=== PATIENT | male | born 1940 | race Hispanic/Latino ===

== ENCOUNTER 2018-04-04 09:56 | Emergency (ER) | payer MEDICARE ==
[~2018-04-04 09:56] MED LIST: AEC81 PO; AMLO5TAB7 PO; ATOR10 PO; CLOP75TA14 PO; FLUTICASONE SPRAY EN; GEMF600T4 PO; METF-444 PO; METO-391 PO; NITR0.4T SL; POLY17PO4 PO
[2018-04-04 10:50] LABS: BASOPHILS % (AUTO) 0.3 % (0.0-5.0); EOSINOPHILS % (AUTO) 0.9 % (0.0-8.0); HEMATOCRIT 41.8 % (42-54); LYMPHOCYTES % (AUTO) 20.4 % (21.0-51.0); MEAN CORPUSCULAR HEMOGLOBIN 33.2 pg (27.0-33.0); MEAN CORPUSCULAR HGB CONC 34.6 g/dL (32.0-36.0); MONOCYTES % (AUTO) 7.6 % (3.0-13.0); NEUTROPHILS % (AUTO) 70.8 % (40.0-77.0); PLATELET COUNT (AUTO) 194 K/uL (130-400); RED BLOOD CELL COUNT(AUTO) 4.35 MIL/uL (4.50-6.20); RED CELL DISTRIBUTION WIDTH 13.7 % (11.0-15.5); WHITE BLOOD COUNT (AUTO) 8.9 K/uL (4.8-10.8)
[2018-04-04 10:59] LABS: CREATININE 1.3 mg/dL (0.5-1.5); POTASSIUM 4.4 mmol/L (3.5-5.1)
[2018-04-04 11:05] LABS: ALBUMIN 4.2 g/dL (3.5-5.0); BILIRUBIN,TOTAL 0.8 mg/dL (0.2-1.0); TOTAL PROTEIN, SERUM 7.8 g/dL (6.0-8.3)
== END 2018-04-04 12:36 | disposition home or self-care (01) ==
LOC: EDH 09:56
DX: M19.90 Unspecified osteoarthritis, unspecified site (principal); I25.10 Atherosclerotic heart disease of native coronary artery without angina pectoris; E11.9 Type 2 diabetes mellitus without complications; K21.9 Gastro-esophageal reflux disease without esophagitis; I10 Essential (primary) hypertension; Z98.890 Other specified postprocedural states; Z87.891 Personal history of nicotine dependence
CPT/HCPCS: 36415; 80053; 85025

== ENCOUNTER → 2018-10-18 | Outpatient (CLI) | payer MEDICARE ==
[~2018-10-18] MED LIST changes: -AMLO5TAB7 PO; +AMLO5TAB9 PO; -GEMF600T4 PO; +GEMF600T5 PO
== END | disposition home or self-care (01) ==
LOC: SHCH 11:17
PROVIDERS: ATTEND Internal Medicine Cardiovascular Disease
DX: I08.0 Rheumatic disorders of both mitral and aortic valves (principal); I11.9 Hypertensive heart disease without heart failure
CPT/HCPCS: 93306

== ENCOUNTER → 2018-11-08 | Outpatient (CLI) | payer MEDICARE ==
[~2018-11-08] MED LIST changes: +REGADENOSON 0.4 MG/5 ML PF SYG IVP SCH
== END | disposition home or self-care (01) ==
LOC: SHCH 08:08
PROVIDERS: ATTEND Internal Medicine Cardiovascular Disease
DX: R06.00 Dyspnea, unspecified (principal)
CPT/HCPCS: 78452; 93017; 96374; A9500 ×2; J2785

== ENCOUNTER 2019-07-28 23:29 | Observation (INO) | payer MEDICARE ==
[~2019-07-28] VITALS: Ht 170.2 cm; Wt 79.4 kg
[~2019-07-28 23:29] MED LIST changes: -REGADENOSON 0.4 MG/5 ML PF SYG IVP SCH
[2019-07-28] MEDS ORDERED: ASPIRIN 325 MG TABLET ONE (23:34)
[2019-07-28 23:48] LABS: BASOPHILS % (AUTO) 0.3 % (0.0-5.0); EOSINOPHILS % (AUTO) 2.3 % (0.0-8.0); HEMATOCRIT 40.2 % (42-54); LYMPHOCYTES % (AUTO) 39.9 % (21.0-51.0); MEAN CORPUSCULAR HEMOGLOBIN 32.5 pg (27.0-33.0); MEAN CORPUSCULAR HGB CONC 33.8 g/dL (32.0-36.0); MEAN CORPUSCULAR VOLUME 95.9 fL (79-99); MONOCYTES % (AUTO) 8.8 % (3.0-13.0); NEUTROPHILS % (AUTO) 48.6 % (40.0-77.0); PLATELET COUNT (AUTO) 185 K/uL (130-400); RED BLOOD CELL COUNT(AUTO) 4.19 MIL/uL (4.50-6.20); RED CELL DISTRIBUTION WIDTH 12.8 % (11.0-15.5); WHITE BLOOD COUNT (AUTO) 8.8 K/uL (4.8-10.8)
[2019-07-28 23:57] LABS: CREATININE 1.5 mg/dL (0.5-1.5)
[2019-07-29 00:01] LABS: INR 1.03 (0.85-1.15); PARTIAL THROMBOPLASTIN TIME 24.5 SEC (26.3-35.5); PROTHROMBIN TIME 10.8 SEC (9.6-11.6)
[2019-07-29 00:02] LABS: ALBUMIN 4.3 g/dL (3.5-5.0); BILIRUBIN,TOTAL 0.7 mg/dL (0.2-1.0); TOTAL PROTEIN, SERUM 7.8 g/dL (6.0-8.3)
[2019-07-29] MEDS ORDERED: LIDOCAINE HCL 2% VISCOUS 15 ML UDCUP ONE (00:13)
[2019-07-29] MEDS ORDERED: MAG HYDROX/AL HYDROX/SIMETH ES 30 ML SUSP UDCUP ONE (00:14)
[2019-07-29] MEDS ORDERED: NITROGLYCERIN 1GM/1 INCH PACKET TD ONE (01:14)
[2019-07-29] MEDS ORDERED: ACETAMINOPHEN 325 MG TAB PO PRN ×2 (02:45)
[2019-07-29] MEDS ORDERED: ONDANSETRON HCL 4 MG/2 ML VIAL IV PRN (02:45)
[2019-07-29] MEDS ORDERED: DEXTROSE 50%-WATER 50 ML DISP.SYRIN IV PRN (02:45)
[2019-07-29] MEDS ORDERED: NITROGLYCERIN 0.4 MG SL TAB SL PRN (02:45)
[2019-07-29] MEDS ORDERED: GLUCAGON 1MG KIT 1 MG ML IM PRN (02:45)
[2019-07-29 02:58] LABS: HEMOGLOBIN A1C 6.5 % (4.0-6.0)
[2019-07-29 05:18] LABS: HEMATOCRIT 37.1 % (42-54); MEAN CORPUSCULAR HEMOGLOBIN 32.5 pg (27.0-33.0); MEAN CORPUSCULAR VOLUME 95.6 fL (79-99); PLATELET COUNT (AUTO) 172 K/uL (130-400); RED BLOOD CELL COUNT(AUTO) 3.88 MIL/uL (4.50-6.20); RED CELL DISTRIBUTION WIDTH 12.8 % (11.0-15.5); WHITE BLOOD COUNT (AUTO) 7.4 K/uL (4.8-10.8)
[2019-07-29 05:36] LABS: ALBUMIN 3.6 g/dL (3.5-5.0); BILIRUBIN,TOTAL 0.7 mg/dL (0.2-1.0); CREATININE 1.2 mg/dL (0.5-1.5); MAGNESIUM 2.1 mg/dL (1.80-2.40); POTASSIUM 4.7 mmol/L (3.5-5.1)
[2019-07-29 06:21] LABS: BAND NEUTROPHILS % (MANUAL) 1 % (0-2); EOSINOPHILS % (MANUAL) 1 % (1-6); LYMPHOCYTES % (MANUAL) 33 % (22-44); MAN.DIFF COMMENT-IMPRESSION MANUAL DIFFERENTIAL; MONOCYTES % (MANUAL) 8 % (2-9); PLATELET MORPHOLOGY COMMENT A1; REACTIVE LYMPHOCYTES 2 % (0-0); SEGMENTED NEUTROPHILS % 55 % (40-70)
[2019-07-29] MEDS ORDERED: INSULIN HUMULIN R 100 UNIT/ML 3ML SQ SCH (07:30)
[2019-07-29] MEDS ORDERED: METOPROLOL TARTRATE 25 MG TAB ONE (08:38)
[2019-07-29] MEDS ORDERED: ENOXAPARIN SODIUM 30 MG/0.3 ML SQ ONE (08:38)
[2019-07-29] MEDS ORDERED: ASPIRIN 81MG TAB.CHEW ONE (08:38)
--- NOTE | 2019-07-29 17:36 | NUR ---
INITIAL: Met with pt and spouse this afternoon to discuss dcp. Pt mentions that he lives w his spouse. Prior to admission he was using a cane for ambulation and was independent w ADLs. pt states that he also has a cpap @ home. Per pt he was still able to drive where needed. Pt mentions that he feels safe and comfortable to return home at [place]. CM to continue to follow and wait for Md recommendations. Addendum: 07/29/19 at 1737 by MIGUEL INIGUEZ Amended: Links added.
[2019-07-29 19:30] VITALS: BP 145/78
[2019-07-29] MEDS ORDERED: RANO500T2 PO (21:01)
[2019-07-29] MEDS ORDERED: RANI-662 PO (21:02)
[2019-07-29] MEDS ORDERED: METO-408 PO (21:04)
[2019-07-29 23:32] VITALS: BP 129/71
[2019-07-30 03:49] VITALS: BP 121/67
[2019-07-30 05:37] LABS: BASOPHILS % (AUTO) 0.5 % (0.0-5.0); EOSINOPHILS % (AUTO) 3.1 % (0.0-8.0); HEMATOCRIT 38.4 % (42-54); LYMPHOCYTES % (AUTO) 33.4 % (21.0-51.0); MEAN CORPUSCULAR HEMOGLOBIN 32.5 pg (27.0-33.0); MEAN CORPUSCULAR HGB CONC 33.9 g/dL (32.0-36.0); MONOCYTES % (AUTO) 10.2 % (3.0-13.0); NEUTROPHILS % (AUTO) 52.6 % (40.0-77.0); PLATELET COUNT (AUTO) 178 K/uL (130-400); RED CELL DISTRIBUTION WIDTH 12.6 % (11.0-15.5); WHITE BLOOD COUNT (AUTO) 6.4 K/uL (4.8-10.8)
[2019-07-30 08:00] VITALS: BP 128/77
[2019-07-30] MEDS: FAMOTIDINE 20MG TAB 20 MG TAB PO SCH ×2 (09:00→09:58)
[2019-07-30] MEDS: METOPROLOL TARTRATE 25 MG TAB PO SCH ×2 (09:00→09:58)
[2019-07-30] MEDS: ASPIRIN 81MG TAB.CHEW PO SCH ×2 (09:00→09:58)
[2019-07-30] MEDS: ENOXAPARIN SODIUM 30 MG/0.3 ML SQ SCH ×2 (09:00→09:59)
[2019-07-30 12:00] VITALS: BP 132/62
== END 2019-07-30 14:20 | disposition home or self-care (01) ==
LOC: EDH 23:29 → EDHIP 07-29 01:45 → 4DH 07-29 19:34
PROVIDERS: ADMIT Internal Medicine; ATTEND Internal Medicine
DX: I49.1 Atrial premature depolarization (principal); R07.89 Other chest pain; I13.10 Hypertensive heart and chronic kidney disease without heart failure, with stage 1 through stage 4 chronic kidney disease, or unspecified chronic kidney disease; E11.22 Type 2 diabetes mellitus with diabetic chronic kidney disease; N18.3 Chronic kidney disease, stage 3 (moderate); I25.10 Atherosclerotic heart disease of native coronary artery without angina pectoris; K21.9 Gastro-esophageal reflux disease without esophagitis; M10.9 Gout, unspecified; G47.33 Obstructive sleep apnea (adult) (pediatric); Z87.891 Personal history of nicotine dependence; Z98.41 Cataract extraction status, right eye; Z98.42 Cataract extraction status, left eye; Z95.1 Presence of aortocoronary bypass graft; Z98.61 Coronary angioplasty status; Z79.82 Long term (current) use of aspirin; Z79.01 Long term (current) use of anticoagulants; Z79.899 Other long term (current) drug therapy
CPT/HCPCS: 36415 ×3; 71045; 80053 ×2; 80061; 82550; 82948 ×4; 83036; 83690; 83735; 83880; 84443; 84484 ×3; 85025 ×3; 85610; 85730; 93005 ×2; 96372; 99284; G0378 ×37; J1650 ×2

== ENCOUNTER 2019-08-22 05:46 | Day surgery (SDC) | payer MEDICARE ==
[2019-08-17 08:49] LABS: BASOPHILS % (AUTO) 0.3 % (0.0-5.0); EOSINOPHILS % (AUTO) 2.5 % (0.0-8.0); LYMPHOCYTES % (AUTO) 33.4 % (21.0-51.0); MEAN CORPUSCULAR HEMOGLOBIN 32.2 pg (27.0-33.0); MEAN CORPUSCULAR VOLUME 97.6 fL (79-99); MONOCYTES % (AUTO) 7.8 % (3.0-13.0); NEUTROPHILS % (AUTO) 55.7 % (40.0-77.0); PLATELET COUNT (AUTO) 196 K/uL (130-400); RED CELL DISTRIBUTION WIDTH 12.8 % (11.0-15.5); WHITE BLOOD COUNT (AUTO) 6.4 K/uL (4.8-10.8)
[2019-08-17 08:52] LABS: APPEARANCE,URINE CLEAR (CLEAR); BILIRUBIN,URINE NEGATIVE (NEGATIVE); COLOR,URINE YELLOW (YELLOW); GLUCOSE, URINE (UA) NEGATIVE (NEGATIVE); KETONES,URINE NEGATIVE (NEGATIVE); LEUKOCYTE ESTERASE ,URINE NEGATIVE (NEGATIVE); NITRATE,URINE NEGATIVE (NEGATIVE); OCCULT BLOOD,URINE NEGATIVE (NEGATIVE); PH,URINE 5.5 (5.0-8.0); PROTEIN,URINE NEGATIVE (NEGATIVE); UROBILINOGEN,URINE 0.2 mg/dL (0.2-1.0)
[2019-08-17 08:56] LABS: CREATININE 1.3 mg/dL (0.5-1.5); POTASSIUM 4.6 mmol/L (3.5-5.1)
[2019-08-17 08:59] VITALS: BP 155/66
[2019-08-17 09:00] LABS: INR 1.02 (0.85-1.15); PROTHROMBIN TIME 10.7 SEC (9.6-11.6)
--- NOTE | 2019-08-21 14:56 | NUR ---
labs crea 1.[address], no further orders given, ok to proceed with planned procedure
[~2019-08-22] VITALS: Ht 170.2 cm; Wt 81.2 kg
[2019-08-22] VITALS (12 sets, daily range): BP systolic 109–144; BP diastolic 58–69
[~2019-08-22 05:46] MED LIST changes: +ACETAMINOPHEN 325 MG TAB PO PRN; -AEC81 PO; +ASPI-1012 PO; +FAMO20TA8 PO; -METO-391 PO; +METO-408 PO; -POLY17PO4 PO; +RANO500T3 PO; +SODIUM CHLORIDE 0.9% 500ML 500 ML IV SCH
[2019-08-22] MEDS ORDERED: SODIUM CHLORIDE 0.9% 1000ML 1,000 ML IV ONE (06:23)
[2019-08-22] MEDS ORDERED: HEPARIN SODIUM 1000UNIT/ML 10ML VIAL ONE (07:18)
[2019-08-22] MEDS ORDERED: SODIUM BICARB 50MEQ 50ML VIAL ONE (07:18)
[2019-08-22] MEDS ORDERED: NITROGLYCERIN 1 MG/VIAL VIAL IV ONE (07:19)
[2019-08-22] MEDS ORDERED: LIDOCAINE HCL 2% 20ML ONE (07:19)
[2019-08-22] MEDS ORDERED: IOHEXOL-350 50ML VIAL IV ONE (07:22)
[2019-08-22] MEDS ORDERED: IOHEXOL 350 MG/ML 100ML INFUS..BTL IV ONE (07:22)
[2019-08-22] MEDS ORDERED: MIDAZOLAM HCL 1 MG/ML 2ML VIAL ONE ×2 (07:36→07:46)
[2019-08-22] MEDS ORDERED: MEPERIDINE-PF 25 MG/ML SYG ONE ×2 (07:36→07:46)
[2019-08-22] MEDS ORDERED: SODIUM CHLORIDE 0.9% 1000ML 1,000 ML IV SCH (08:28)
[2019-08-22] MEDS ORDERED: DEXTROSE 50%-WATER 50 ML DISP.SYRIN IV PRN (08:30)
[2019-08-22] MEDS ORDERED: GLUCAGON 1MG KIT 1 MG ML IM PRN (08:30)
[2019-08-22] MEDS ORDERED: INSULIN HUMULIN R 100 UNIT/ML 3ML SQ SCH (11:30)
--- NOTE | 2019-08-22 14:00 | NUR ---
PT discharged home, tolerating liquids/solids well, voided, ambulating well. Pt denies any severe pain, nausea or dizziness. Dressing to right groin remains dry, clean and intact, area soft and non-tender. Pt and spouse instructed in routine and emergency care of cath site. Pt and spouse verbalized understanding. Pt and family report no further questions at this time.
--- NOTE | 2019-08-22 14:00 | NUR ---
dc pt dc home via wc,no distress noted. pt denied any pain or discomforts. pt accompanied by spouse.
== END 2019-08-22 14:00 | disposition home or self-care (01) ==
LOC: DAH 05:46
PROVIDERS: ATTEND Internal Medicine Cardiovascular Disease
DX: I25.119 Atherosclerotic heart disease of native coronary artery with unspecified angina pectoris (principal); I35.0 Nonrheumatic aortic (valve) stenosis; G47.33 Obstructive sleep apnea (adult) (pediatric); I10 Essential (primary) hypertension; E11.9 Type 2 diabetes mellitus without complications; Z95.1 Presence of aortocoronary bypass graft; Z79.01 Long term (current) use of anticoagulants
CPT/HCPCS: 36415; 71045; 80048; 81003; 82948 ×2; 85025; 85610; 85730; 93005; 93459; A4215; A4216; A4221; A4222; A4223 ×3; A4606; A4663; A6260; C1760; C1769 ×2; C1894; J1644; J2175 ×2; J2250 ×2; J3490 ×3; J7030; Q9965 ×2; Q9967 ×2; 99156; 99157

== ENCOUNTER → 2020-08-22 | Outpatient (CLI) | payer MEDICARE ==
[~2020-08-22] MED LIST changes: -ACETAMINOPHEN 325 MG TAB PO PRN; +AMLO-257 PO; -AMLO5TAB9 PO; -GEMF600T5 PO; +GEMF600T89 PO; -SODIUM CHLORIDE 0.9% 500ML 500 ML IV SCH
== END | disposition home or self-care (01) ==
LOC: SHCH 15:41
PROVIDERS: ATTEND Internal Medicine Cardiovascular Disease
DX: I10 Essential (primary) hypertension (principal)
CPT/HCPCS: 93306; 93356

== ENCOUNTER → 2020-09-03 | Outpatient (CLI) | payer MEDICARE | END | disposition home or self-care (01) | LOC: SHCH 10:00 | PROVIDERS: ATTEND Internal Medicine Cardiovascular Disease | DX: I15.0 Renovascular hypertension (principal) | CPT/HCPCS: 93975 ==

== ENCOUNTER → 2020-09-16 | Outpatient (CLI) | payer MEDICARE | END | disposition home or self-care (01) | LOC: SHCH 15:00 | PROVIDERS: ATTEND Internal Medicine Cardiovascular Disease | DX: I25.810 Atherosclerosis of coronary artery bypass graft(s) without angina pectoris (principal); I35.0 Nonrheumatic aortic (valve) stenosis | CPT/HCPCS: 93880 ==

== ENCOUNTER 2021-06-16 06:24 | Day surgery (SDC) | payer MEDICARE ==
[2021-06-11 10:33] LABS: BASOPHILS % (AUTO) 0.2 % (0.0-5.0); EOSINOPHILS % (AUTO) 1.6 % (0.0-8.0); HEMATOCRIT 38.2 % (42-54); LYMPHOCYTES % (AUTO) 34.3 % (21.0-51.0); MEAN CORPUSCULAR HEMOGLOBIN 33.6 pg (27.0-33.0); MEAN CORPUSCULAR HGB CONC 33.5 g/dL (32.0-36.0); MEAN CORPUSCULAR VOLUME 100.3 fL (79-99); MONOCYTES % (AUTO) 7.2 % (3.0-13.0); NEUTROPHILS % (AUTO) 56.5 % (40.0-77.0); PLATELET COUNT (AUTO) 174 K/uL (130-400); RED BLOOD CELL COUNT(AUTO) 3.81 MIL/uL (4.50-6.20); RED CELL DISTRIBUTION WIDTH 12.9 % (11.0-15.5); WHITE BLOOD COUNT (AUTO) 6.3 K/uL (4.8-10.8)
[2021-06-11 10:40] LABS: APPEARANCE,URINE Clear (CLEAR); BILIRUBIN,URINE Negative (NEGATIVE); COLOR,URINE Yellow (YELLOW); GLUCOSE, URINE (UA) Negative (NEGATIVE); KETONES,URINE Negative (NEGATIVE); LEUKOCYTE ESTERASE ,URINE Trace (NEGATIVE); NITRATE,URINE Negative (NEGATIVE); OCCULT BLOOD,URINE Negative (NEGATIVE); PROTEIN,URINE Negative (NEGATIVE); UROBILINOGEN,URINE 0.2 mg/dL (0.2-1.0)
[2021-06-11 10:43] LABS: CREATININE 1.4 mg/dL (0.5-1.5); POTASSIUM 5.2 mmol/L (3.5-5.1)
[2021-06-11 10:45] LABS: INR 1.01 (0.85-1.15)
[2021-06-11 10:46] LABS: BACTERIA,URINE Rare /HPF (None Seen); RBC,URINE 0-1 /HPF (0-1); SQUAMOUS EPITHELIAL CELL,UR Rare /HPF (0-2); WBC,URINE 0-1 /HPF (0-1)
[2021-06-11 10:47] LABS: PARTIAL THROMBOPLASTIN TIME 24.6 SEC (26.3-35.5)
[2021-06-11 11:50] VITALS: BP 154/74
[~2021-06-16] VITALS: Ht 167.6 cm; Wt 74.8 kg
[2021-06-16] VITALS (12 sets, daily range): BP systolic 116–155; BP diastolic 54–75
[~2021-06-16 06:24] MED LIST changes: -AMLO-257 PO; -CLOP75TA14 PO; -FAMO20TA8 PO; -FLUTICASONE SPRAY EN; +GABA300C PO; +IPRA3S NASAL; +LOSA25TA41 PO; -NITR0.4T SL; +PLEC3TAB2 PO; +VITA1CAP85 PO
[2021-06-16] MEDS ORDERED: 0.9%NACL 1000ML 1,000 ML IV ONE (08:26)
[2021-06-16] MEDS ORDERED: NITROGLYCERIN 2 MG VIAL IV ONE (08:42)
[2021-06-16] MEDS ORDERED: HEPARIN 10,000 UNIT/10ML (1,000 UNIT/ML) VIAL ONE (08:42)
[2021-06-16] MEDS ORDERED: SODIUM BICARB 50MEQ 50ML VIAL 50 ML ONE (08:42)
[2021-06-16] MEDS ORDERED: IOHEXOL 350 MG/ML 100ML INFUS..BTL IV ONE (08:43)
[2021-06-16] MEDS ORDERED: IOHEXOL-350 50ML VIAL IV ONE (08:43)
[2021-06-16] MEDS ORDERED: LIDOCAINE HCL 400MG/20ML VIAL ONE (08:43)
[2021-06-16] MEDS ORDERED: MIDAZOLAM HCL 1 MG/ML 2ML VIAL ONE (09:17)
[2021-06-16] MEDS ORDERED: MEPERIDINE-PF 25 MG/ML SYG ONE (09:17)
[2021-06-16] MEDS ORDERED: DEXTROSE 50%-WATER 50 ML DISP.SYRIN IV PRN (11:00)
[2021-06-16] MEDS ORDERED: 0.9%NACL 1000ML 1,000 ML IV SCH (11:00)
[2021-06-16] MEDS ORDERED: INSULIN HUMULIN R 100 UNIT/ML 3ML SQ SCH (11:30)
== END 2021-06-16 17:15 | disposition home or self-care (01) ==
LOC: DAH 06:24
PROVIDERS: ATTEND Internal Medicine Cardiovascular Disease
DX: I25.119 Atherosclerotic heart disease of native coronary artery with unspecified angina pectoris (principal); I35.0 Nonrheumatic aortic (valve) stenosis; I49.8 Other specified cardiac arrhythmias; E11.22 Type 2 diabetes mellitus with diabetic chronic kidney disease; I13.0 Hypertensive heart and chronic kidney disease with heart failure and stage 1 through stage 4 chronic kidney disease, or unspecified chronic kidney disease; N18.30 Chronic kidney disease, stage 3 unspecified; I50.32 Chronic diastolic (congestive) heart failure; G47.33 Obstructive sleep apnea (adult) (pediatric); M10.9 Gout, unspecified; Z79.01 Long term (current) use of anticoagulants; Z79.899 Other long term (current) drug therapy; Z79.82 Long term (current) use of aspirin; Z79.84 Long term (current) use of oral hypoglycemic drugs; Z82.49 Family history of ischemic heart disease and other diseases of the circulatory system
CPT/HCPCS: 36415; 71045; 80048; 81001; 82948 ×2; 85025; 85610; 85730; 93005; 93461; A4215; A4216; A4221; A4222; A4223 ×3; A4606; A4663; C1760; C1769 ×3; C1893 ×2; C1894 ×3; J1644; J2175; J2250; J3490 ×3; J7030; Q9965; Q9967 ×2; 99156; 99157

== ENCOUNTER 2021-06-17 09:36 | Emergency (ER) | payer MEDICARE ==
[~2021-06-17] VITALS: Ht 167.6 cm; Wt 74.8 kg
[2021-06-17 11:18] VITALS: BP 142/70
== END 2021-06-17 11:35 | disposition home or self-care (01) ==
LOC: EDH 09:36
DX: G89.18 Other acute postprocedural pain (principal); M79.605 Pain in left leg; E11.9 Type 2 diabetes mellitus without complications; I11.9 Hypertensive heart disease without heart failure; K21.9 Gastro-esophageal reflux disease without esophagitis; Z79.82 Long term (current) use of aspirin; G47.30 Sleep apnea, unspecified; Z79.84 Long term (current) use of oral hypoglycemic drugs; Z79.899 Other long term (current) drug therapy; Z95.5 Presence of coronary angioplasty implant and graft
CPT/HCPCS: 76882

== ENCOUNTER → 2021-06-26 | Outpatient (CLI) | payer MEDICARE ==
[~2021-06-26] MED LIST changes: +IOHEXOL 350 MG/ML 100ML INFUS..BTL IV ONE; +METOPROLOL TARTRATE 1 MG/ML 5ML VIAL IV ONE
== END | disposition home or self-care (01) ==
LOC: RAH 08:04
PROVIDERS: ATTEND Internal Medicine Cardiovascular Disease
DX: I25.10 Atherosclerotic heart disease of native coronary artery without angina pectoris (principal); I51.7 Cardiomegaly; J84.10 Pulmonary fibrosis, unspecified; J47.9 Bronchiectasis, uncomplicated; M47.815 Spondylosis without myelopathy or radiculopathy, thoracolumbar region
CPT/HCPCS: 74174; 75574; J3490; Q9967

== ENCOUNTER 2021-07-23 00:07 | Emergency (ER) | payer MEDICARE ==
[~2021-07-23] VITALS: Ht 167.6 cm; Wt 74.8 kg
[~2021-07-23 00:07] MED LIST changes: -IOHEXOL 350 MG/ML 100ML INFUS..BTL IV ONE; -METOPROLOL TARTRATE 1 MG/ML 5ML VIAL IV ONE
[2021-07-23] MEDS ORDERED: MAG/ALUM/SIMETH 30 ML UDCUP PO ONE (03:30)
[2021-07-23] MEDS ORDERED: LIDOCAINE HCL 2% VISCOUS 15 ML UDCUP PO ONE (03:30)
[2021-07-23] MEDS ORDERED: NITROGLYCERIN 1GM OINT 1 INCH/1GM TD ONE (04:00)
[2021-07-23] MEDS ORDERED: METOPROLOL TARTRATE 25 MG TAB PO ONE (04:00)
[2021-07-23 04:05] LABS: BASOPHILS % (AUTO) 0.3 % (0.0-5.0); EOSINOPHILS % (AUTO) 1.3 % (0.0-8.0); HEMATOCRIT 33.5 % (42-54); MEAN CORPUSCULAR HEMOGLOBIN 33.3 pg (27.0-33.0); MEAN CORPUSCULAR HGB CONC 33.4 g/dL (32.0-36.0); MEAN CORPUSCULAR VOLUME 99.7 fL (79-99); MONOCYTES % (AUTO) 8.1 % (3.0-13.0); PLATELET COUNT (AUTO) 159 K/uL (130-400); RED BLOOD CELL COUNT(AUTO) 3.36 MIL/uL (4.50-6.20); RED CELL DISTRIBUTION WIDTH 12.5 % (11.0-15.5); WHITE BLOOD COUNT (AUTO) 7.6 K/uL (4.8-10.8)
[2021-07-23 04:17] LABS: INR 1.05 (0.85-1.15); PROTHROMBIN TIME 11.4 SEC (9.6-11.6)
[2021-07-23 04:19] LABS: PARTIAL THROMBOPLASTIN TIME 23.9 SEC (26.3-35.5)
[2021-07-23 04:26] LABS: MAGNESIUM 1.9 mg/dL (1.80-2.40)
[2021-07-23 04:27] LABS: B-TYPE NATRIURETIC PEPTIDE 148 pg/mL (0-100)
[2021-07-23 05:23] LABS: CREATININE 1.2 mg/dL (0.5-1.5); POTASSIUM 4.9 mmol/L (3.5-5.1)
[2021-07-23 06:06] VITALS: BP 158/83
== END 2021-07-23 06:11 | disposition home or self-care (01) ==
LOC: EDH 00:07
DX: I10 Essential (primary) hypertension (principal); R53.81 Other malaise; E11.9 Type 2 diabetes mellitus without complications; K21.9 Gastro-esophageal reflux disease without esophagitis; Z79.82 Long term (current) use of aspirin; Z79.84 Long term (current) use of oral hypoglycemic drugs; Z79.899 Other long term (current) drug therapy; Z95.2 Presence of prosthetic heart valve; Z95.5 Presence of coronary angioplasty implant and graft
CPT/HCPCS: 36415; 71045; 80048; 82550; 83735; 83880; 84484; 85025; 85610; 85730; 93005

== ENCOUNTER → 2021-07-31 | Outpatient (CLI) | payer MEDICARE | END | disposition home or self-care (01) | LOC: RAH 14:12 | PROVIDERS: ATTEND Internal Medicine Cardiovascular Disease | DX: I11.9 Hypertensive heart disease without heart failure (principal); I35.0 Nonrheumatic aortic (valve) stenosis; E11.9 Type 2 diabetes mellitus without complications; E78.5 Hyperlipidemia, unspecified; Z95.2 Presence of prosthetic heart valve | CPT/HCPCS: 93306 ==

== ENCOUNTER → 2022-09-24 | Outpatient (CLI) | payer MEDICARE ==
[2022-09-24 13:01] LABS: BASOPHILS % (AUTO) 0.4 % (0.0-5.0); EOSINOPHILS % (AUTO) 2.7 % (0.0-8.0); HEMATOCRIT 39.4 % (42-54); MEAN CORPUSCULAR HEMOGLOBIN 32.5 pg (27.0-33.0); MEAN CORPUSCULAR HGB CONC 32.7 g/dL (32.0-36.0); MEAN CORPUSCULAR VOLUME 99.2 fL (79-99); MONOCYTES % (AUTO) 7.2 % (3.0-13.0); NEUTROPHILS % (AUTO) 61.7 % (40.0-77.0); PLATELET COUNT (AUTO) 159 K/uL (130-400); RED BLOOD CELL COUNT(AUTO) 3.97 MIL/uL (4.50-6.20); RED CELL DISTRIBUTION WIDTH 13.9 % (11.0-15.5); WHITE BLOOD COUNT (AUTO) 7.1 K/uL (4.8-10.8)
[2022-09-24 13:22] LABS: ALBUMIN 3.9 g/dL (3.5-5.0); CREATININE 1.4 mg/dL (0.5-1.5); POTASSIUM 3.9 mmol/L (3.5-5.1); TOTAL PROTEIN, SERUM 7.5 g/dL (6.0-8.3)
== END | disposition home or self-care (01) ==
LOC: LAB 10:50
PROVIDERS: ATTEND Internal Medicine Cardiovascular Disease
DX: I10 Essential (primary) hypertension (principal); E78.5 Hyperlipidemia, unspecified
CPT/HCPCS: 36415; 80053; 83880; 85025

== ENCOUNTER 2022-10-16 07:16 | Emergency (ER) | payer MEDICARE ==
[~2022-10-16] VITALS: Ht 167.6 cm; Wt 77.6 kg
[2022-10-16 07:59] LABS: BASOPHILS % (AUTO) 0.1 % (0.0-5.0); EOSINOPHILS % (AUTO) 1.9 % (0.0-8.0); HEMATOCRIT 38.1 % (42-54); LYMPHOCYTES % (AUTO) 21.8 % (21.0-51.0); MEAN CORPUSCULAR HEMOGLOBIN 32.9 pg (27.0-33.0); MEAN CORPUSCULAR HGB CONC 33.1 g/dL (32.0-36.0); MEAN CORPUSCULAR VOLUME 99.5 fL (79-99); MONOCYTES % (AUTO) 7.8 % (3.0-13.0); PLATELET COUNT (AUTO) 141 K/uL (130-400); RED BLOOD CELL COUNT(AUTO) 3.83 MIL/uL (4.50-6.20); RED CELL DISTRIBUTION WIDTH 13.7 % (11.0-15.5)
[2022-10-16 08:16] LABS: ALBUMIN 3.9 g/dL (3.5-5.0); CREATININE 1.4 mg/dL (0.5-1.5); TOTAL PROTEIN, SERUM 7.6 g/dL (6.0-8.3)
[2022-10-16] MEDS ORDERED: 0.9% NACL 500ML IV.SOLN 500 ML IV ONE (08:30)
[2022-10-16] MEDS ORDERED: LOPERAMIDE HCL 2 MG CAP PO ONE (08:30)
[2022-10-16 10:15] LABS: APPEARANCE,URINE CLEAR (CLEAR); BILIRUBIN,URINE NEGATIVE (NEGATIVE); COLOR,URINE YELLOW (YELLOW); GLUCOSE, URINE (UA) NEGATIVE (NEGATIVE); KETONES,URINE NEGATIVE (NEGATIVE); LEUKOCYTE ESTERASE ,URINE NEGATIVE Leu/uL (NEGATIVE); NITRATE,URINE NEGATIVE (NEGATIVE); OCCULT BLOOD,URINE NEGATIVE (NEGATIVE); PROTEIN,URINE NEGATIVE (NEGATIVE); UROBILINOGEN,URINE 0.2 mg/dL (0.2-1.0)
[2022-10-16 11:43] VITALS: BP 133/66
== END 2022-10-16 11:59 | disposition home or self-care (01) ==
LOC: EDH 07:16
DX: R19.7 Diarrhea, unspecified (principal); E86.0 Dehydration; I10 Essential (primary) hypertension; E11.9 Type 2 diabetes mellitus without complications; K21.9 Gastro-esophageal reflux disease without esophagitis; Z79.82 Long term (current) use of aspirin; Z79.84 Long term (current) use of oral hypoglycemic drugs; Z79.899 Other long term (current) drug therapy; Z95.1 Presence of aortocoronary bypass graft; Z95.5 Presence of coronary angioplasty implant and graft; Z98.890 Other specified postprocedural states
CPT/HCPCS: 96361; 99283; 96360; 80053; 85025; 81003; 36415; J7040

== ENCOUNTER → 2022-10-21 | Outpatient (CLI) | payer MEDICARE | END | disposition home or self-care (01) | LOC: SHCH 13:27 | PROVIDERS: ATTEND Internal Medicine Cardiovascular Disease | DX: I11.9 Hypertensive heart disease without heart failure (principal); E11.9 Type 2 diabetes mellitus without complications; E78.5 Hyperlipidemia, unspecified; Z95.1 Presence of aortocoronary bypass graft; Z95.2 Presence of prosthetic heart valve | CPT/HCPCS: 93306 ==

== ENCOUNTER 2022-10-25 18:02 | Emergency (ER) | payer MEDICARE ==
[~2022-10-25] VITALS: Ht 167.6 cm; Wt 77.1 kg
[2022-10-25 18:33] LABS: BASOPHILS % (AUTO) 0.1 % (0.0-5.0); EOSINOPHILS % (AUTO) 2.2 % (0.0-8.0); HEMATOCRIT 34.3 % (42-54); LYMPHOCYTES % (AUTO) 18.6 % (21.0-51.0); MEAN CORPUSCULAR HGB CONC 33.5 g/dL (32.0-36.0); MEAN CORPUSCULAR VOLUME 98.6 fL (79-99); MONOCYTES % (AUTO) 6.9 % (3.0-13.0); PLATELET COUNT (AUTO) 134 K/uL (130-400); RED BLOOD CELL COUNT(AUTO) 3.48 MIL/uL (4.50-6.20); RED CELL DISTRIBUTION WIDTH 13.7 % (11.0-15.5); WHITE BLOOD COUNT (AUTO) 9.1 K/uL (4.8-10.8)
[2022-10-25 18:44] LABS: APPEARANCE,URINE CLEAR (CLEAR); BILIRUBIN,URINE NEGATIVE (NEGATIVE); COLOR,URINE YELLOW (YELLOW); GLUCOSE, URINE (UA) NEGATIVE (NEGATIVE); KETONES,URINE NEGATIVE (NEGATIVE); LEUKOCYTE ESTERASE ,URINE NEGATIVE Leu/uL (NEGATIVE); NITRATE,URINE NEGATIVE (NEGATIVE); OCCULT BLOOD,URINE NEGATIVE (NEGATIVE); PROTEIN,URINE NEGATIVE (NEGATIVE); UROBILINOGEN,URINE 0.2 mg/dL (0.2-1.0)
[2022-10-25 18:48] LABS: CREATININE 1.4 mg/dL (0.5-1.5); POTASSIUM 4.6 mmol/L (3.5-5.1)
[2022-10-25 18:53] LABS: ALBUMIN 3.5 g/dL (3.5-5.0); TOTAL PROTEIN, SERUM 6.9 g/dL (6.0-8.3)
[2022-10-25 19:20] LABS: MUCUS,URINE RARE LPF (None Seen); SQUAMOUS EPITHELIAL CELL,UR RARE /HPF (0-2); WBC,URINE 0-1 /HPF (0-1)
[2022-10-25 20:38] VITALS: BP 108/62
== END 2022-10-25 20:45 | disposition home or self-care (01) ==
LOC: EDH 18:02
DX: R53.1 Weakness (principal); M19.90 Unspecified osteoarthritis, unspecified site; I25.10 Atherosclerotic heart disease of native coronary artery without angina pectoris; E11.9 Type 2 diabetes mellitus without complications; K21.9 Gastro-esophageal reflux disease without esophagitis; I10 Essential (primary) hypertension; Z79.82 Long term (current) use of aspirin; Z79.84 Long term (current) use of oral hypoglycemic drugs; Z79.899 Other long term (current) drug therapy; Z86.73 Personal history of transient ischemic attack (TIA), and cerebral infarction without residual deficits; Z95.1 Presence of aortocoronary bypass graft; Z20.822 Contact with and (suspected) exposure to COVID-19
CPT/HCPCS: 99285; 71045; 87635; 84484; 80053; 85025; 87880; 87804 ×2; 83605; 81001; 36415; 93005; C9803

== ENCOUNTER 2023-03-02 21:02 | Emergency (ER) | payer MEDICARE ==
[~2023-03-02] VITALS: Ht 167.6 cm; Wt 78.0 kg
[2023-03-02 23:31] VITALS: BP 149/73; PULSE 62; RESP 20; O2SAT 98
== END 2023-03-03 01:16 | disposition home or self-care (01) ==
LOC: EDH 21:02
DX: S09.90XA Unspecified injury of head, initial encounter (principal); M19.90 Unspecified osteoarthritis, unspecified site; E11.9 Type 2 diabetes mellitus without complications; I10 Essential (primary) hypertension; Z79.82 Long term (current) use of aspirin; Z79.84 Long term (current) use of oral hypoglycemic drugs; Z79.899 Other long term (current) drug therapy; Z86.73 Personal history of transient ischemic attack (TIA), and cerebral infarction without residual deficits; W18.39XA Other fall on same level, initial encounter; Y93.89 Activity, other specified; Y92.89 Other specified places as the place of occurrence of the external cause; Y99.8 Other external cause status
CPT/HCPCS: 70450

== ENCOUNTER → 2023-05-05 | Outpatient (CLI) | payer MEDICARE ==
[~2023-05-05] MED LIST changes: +AEC81 PO; +CHOL-34 PO; +DAPA5TAB PO; +DICL100G60 TP; +FOLI20CA PO; +GABA-529 PO; +GADOTERATE MEGLUMINE 5 MMOL/10 ML VIAL IV ONE; +PANT20TA18 PO; +ROSU20TA73 PO; +VIT1TAB.13 PO; +VITAMIN B12 SL
== END | disposition home or self-care (01) ==
LOC: RAH 08:36
PROVIDERS: ATTEND Internal Medicine Gastroenterology
DX: R94.5 Abnormal results of liver function studies (principal)
CPT/HCPCS: 74183; A9575; S8037

== ENCOUNTER 2023-05-19 07:13 | Day surgery (SDC) | payer MEDICARE ==
[2023-05-17 16:16] LABS: CREATININE 1.7 mg/dL (0.5-1.5); POTASSIUM 4.6 mmol/L (3.5-5.1)
[2023-05-17 16:19] VITALS: BP 195/97; PULSE 63; RESP 14
[2023-05-19] VITALS (15 sets, daily range): BP systolic 131–163; BP diastolic 65–78; PULSE 53–79; RESP 14–19
[~2023-05-19] VITALS: Ht 167.6 cm; Wt 72.1 kg
[~2023-05-19 07:13] MED LIST changes: -AEC81 PO; -ATOR10 PO; -GABA-529 PO; -GADOTERATE MEGLUMINE 5 MMOL/10 ML VIAL IV ONE; -GEMF600T89 PO; -METF-444 PO; -VITAMIN B12 SL
[2023-05-19] MEDS ORDERED: IOHEXOL-350 50ML VIAL IV ONE (08:37)
[2023-05-19] MEDS ORDERED: INDOMETHACIN 100 MG SUPP.RECT RC ONE (09:00)
[2023-05-19] MEDS ORDERED: GABA-529 PO (09:25)
[2023-05-19] MEDS ORDERED: AEC81 PO (09:25)
[2023-05-19] MEDS ORDERED: VITAMIN B12 SL (09:25)
[2023-05-19] MEDS ORDERED: PROPOFOL 10 MG/ML 20ML VIAL IV ONE (09:32)
[2023-05-19] MEDS ORDERED: FENTANYL CITRATE PF 50 MCG/1 ML 2ML VIAL ONE (09:32)
[2023-05-19] MEDS ORDERED: ONDANSETRON 4MG INJ ONE (09:33)
== END 2023-05-19 11:30 | disposition home or self-care (01) ==
LOC: ENDO 07:13 → DAH 07:13 → ENDO 11:30
PROVIDERS: ATTEND Internal Medicine Gastroenterology
DX: R93.2 Abnormal findings on diagnostic imaging of liver and biliary tract (principal); K83.1 Obstruction of bile duct; K21.9 Gastro-esophageal reflux disease without esophagitis; K59.04 Chronic idiopathic constipation; I10 Essential (primary) hypertension; G47.30 Sleep apnea, unspecified; E11.9 Type 2 diabetes mellitus without complications; I25.10 Atherosclerotic heart disease of native coronary artery without angina pectoris; Z79.01 Long term (current) use of anticoagulants; Z79.899 Other long term (current) drug therapy; Z95.5 Presence of coronary angioplasty implant and graft; Z98.49 Cataract extraction status, unspecified eye; Z86.73 Personal history of transient ischemic attack (TIA), and cerebral infarction without residual deficits; Z86.010 Personal history of colon polyps
CPT/HCPCS: 80048; 36415; 93005; 43274; 82948 ×2; 88305 ×2; 74328; 43261; J3010; J2704; J2405; Q9967; A4649; C2625; A4215 ×2; A4223; A4657; A7002; A4222; A4221; A4663; A4216; J7030; A4606; C1769; C1773; 74330; J3490

== ENCOUNTER 2023-05-31 09:06 | Emergency (ER) | payer MEDICARE ==
[~2023-05-31] VITALS: Ht 167.6 cm; Wt 68.9 kg
[~2023-05-31 09:06] MED LIST changes: +AEC81 PO; -ASPI-1012 PO; +GABA-529 PO; -GABA300C PO; -VITA1CAP85 PO; +VITAMIN B12 SL
[2023-05-31 11:22] VITALS: BP 145/78; PULSE 81; RESP 18; O2SAT 98
== END 2023-05-31 11:31 | disposition home or self-care (01) ==
LOC: EDH 09:06
DX: S00.03XA Contusion of scalp, initial encounter (principal); S30.0XXA Contusion of lower back and pelvis, initial encounter; I10 Essential (primary) hypertension; E11.36 Type 2 diabetes mellitus with diabetic cataract; K21.9 Gastro-esophageal reflux disease without esophagitis; Z79.82 Long term (current) use of aspirin; Z79.899 Other long term (current) drug therapy; Z86.73 Personal history of transient ischemic attack (TIA), and cerebral infarction without residual deficits; Z98.890 Other specified postprocedural states; W18.39XA Other fall on same level, initial encounter; Y93.89 Activity, other specified; Y92.89 Other specified places as the place of occurrence of the external cause; Y99.8 Other external cause status
CPT/HCPCS: 70450; 72110; 72125; 72170

== ENCOUNTER 2023-06-01 08:50 | Day surgery (SDC) | payer MEDICARE ==
[2023-05-28 13:59] VITALS: BP 146/70; PULSE 75; RESP 16
[~2023-06-01] VITALS: Ht 167.6 cm; Wt 71.2 kg
[2023-06-01] VITALS (19 sets, daily range): BP systolic 111–159; BP diastolic 55–74; PULSE 62–73; RESP 14–18
[~2023-06-01 08:50] MED LIST changes: +INDOMETHACIN 100 MG SUPP.RECT RC ONE
[2023-06-01] MEDS ORDERED: IOHEXOL-350 50ML VIAL IV ONE (10:13)
[2023-06-01] MEDS ORDERED: PROPOFOL 10 MG/ML 20ML VIAL IV ONE (12:08)
[2023-06-01] MEDS ORDERED: SUCCINYLCHOLINE CHLORIDE 20 MG/ML 10 ML VIAL ONE (12:08)
[2023-06-01] MEDS ORDERED: IPRATROPIUM/ALBUTEROL SULFATE 3 ML SOLUTION IH ONE ×2 (14:35→15:00)
[2023-06-01] MEDS ORDERED: ONDANSETRON 4MG INJ ONE (14:55)
[2023-06-01] MEDS ORDERED: MEPERIDINE-PF 25 MG/ML SYG ONE (14:58)
== END 2023-06-01 17:29 | disposition home or self-care (01) ==
LOC: ENDO 08:50 → DAH 08:50 → ENDO 17:29
PROVIDERS: ATTEND Internal Medicine Gastroenterology
DX: R94.5 Abnormal results of liver function studies (principal); K83.1 Obstruction of bile duct; R74.8 Abnormal levels of other serum enzymes; K83.8 Other specified diseases of biliary tract; K59.04 Chronic idiopathic constipation; I10 Essential (primary) hypertension; I25.10 Atherosclerotic heart disease of native coronary artery without angina pectoris; K21.9 Gastro-esophageal reflux disease without esophagitis; G47.30 Sleep apnea, unspecified; E11.9 Type 2 diabetes mellitus without complications; Z79.899 Other long term (current) drug therapy; Z86.010 Personal history of colon polyps; Z86.73 Personal history of transient ischemic attack (TIA), and cerebral infarction without residual deficits; Z95.5 Presence of coronary angioplasty implant and graft; Z98.890 Other specified postprocedural states; Z98.49 Cataract extraction status, unspecified eye; Z87.891 Personal history of nicotine dependence
CPT/HCPCS: 43276; 82948 ×2; 88305; 88307; 88342; 88112; 74328; 43273; 43238; 94640; 88341; 43261; J0330; J2704; J2405; J2175; Q9967; A4649; C2625; A4215 ×5; A7002 ×2; A4222 ×2; A4663 ×2; A4216; J7030 ×2; C1769; A4620 ×2; A4223 ×2; A4221 ×2; A4606 ×2; 74330; J3490

== ENCOUNTER → 2023-06-17 | Outpatient (CLI) | payer MEDICARE ==
[~2023-06-17] MED LIST changes: -INDOMETHACIN 100 MG SUPP.RECT RC ONE
[2023-06-17 10:45] LABS: ALBUMIN 3.3 g/dL (3.5-5.0); BILIRUBIN,DIRECT 0.5 mg/dL (0.0-0.3); BILIRUBIN,TOTAL 1.1 mg/dL (0.2-1.0); TOTAL PROTEIN, SERUM 8.1 g/dL (6.0-8.3)
== END | disposition home or self-care (01) ==
LOC: LAB 09:34
PROVIDERS: ATTEND Internal Medicine Gastroenterology
DX: K83.1 Obstruction of bile duct (principal)
CPT/HCPCS: 36415; 80076; 86316

== ENCOUNTER → 2023-06-22 | Outpatient (CLI) | payer MEDICARE ==
[~2023-06-22] MED LIST changes: +IOHEXOL-350 75 ML VIAL IV ONE
== END | disposition home or self-care (01) ==
LOC: RAH 09:58
PROVIDERS: ATTEND Internal Medicine Gastroenterology
DX: K57.90 Diverticulosis of intestine, part unspecified, without perforation or abscess without bleeding (principal); K83.1 Obstruction of bile duct; M47.815 Spondylosis without myelopathy or radiculopathy, thoracolumbar region; N28.89 Other specified disorders of kidney and ureter; I70.0 Atherosclerosis of aorta
CPT/HCPCS: 74170; Q9967

== ENCOUNTER → 2023-06-23 | Outpatient (CLI) | payer MEDICARE ==
[~2023-06-23] MED LIST changes: -IOHEXOL-350 75 ML VIAL IV ONE
[2023-06-23 15:42] LABS: ALBUMIN 3.1 g/dL (3.5-5.0); BILIRUBIN,DIRECT 0.6 mg/dL (0.0-0.3); BILIRUBIN,TOTAL 1.2 mg/dL (0.2-1.0); TOTAL PROTEIN, SERUM 8.1 g/dL (6.0-8.3)
== END | disposition home or self-care (01) ==
LOC: LAB 14:46
PROVIDERS: ATTEND Internal Medicine Gastroenterology
DX: K83.1 Obstruction of bile duct (principal)
CPT/HCPCS: 36415; 80076; 86316

== ENCOUNTER 2023-08-18 09:40 | Day surgery (SDC) | payer MEDICARE ==
[2023-08-18] VITALS (11 sets, daily range): BP systolic 127–153; BP diastolic 66–81; PULSE 65–81; RESP 14–19
[~2023-08-18] VITALS: Ht 167.6 cm; Wt 68.0 kg
[~2023-08-18 09:40] MED LIST changes: +0.9%NACL 1000ML 1,000 ML IV ONE; -CHOL-34 PO; +CHOL2000 PO; -DICL100G60 TP; -IPRA3S NASAL; +LORA10TA7 PO; -PANT20TA18 PO; +PANT40GR PO; +PIOG1TAB38 PO; -PLEC3TAB2 PO; +RANO500T2 PO; -RANO500T3 PO; -VIT1TAB.13 PO; -VITAMIN B12 SL
[2023-08-18] MEDS ORDERED: IOHEXOL-350 50ML VIAL IV ONE (11:14)
[2023-08-18] MEDS ORDERED: FENTANYL CITRATE PF 50 MCG/1 ML 2ML VIAL ONE (11:22)
[2023-08-18] MEDS ORDERED: PROPOFOL 10 MG/ML 20ML VIAL IV ONE (11:22)
[2023-08-18] MEDS ORDERED: SUCCINYLCHOLINE CHLORIDE 20 MG/ML 10 ML VIAL ONE (11:23)
== END 2023-08-18 13:29 | disposition home or self-care (01) ==
LOC: DAH 09:40 → ENDO 09:40
PROVIDERS: ATTEND Internal Medicine Gastroenterology
DX: Z46.59 Encounter for fitting and adjustment of other gastrointestinal appliance and device (principal); K83.1 Obstruction of bile duct; K83.8 Other specified diseases of biliary tract; C25.2 Malignant neoplasm of tail of pancreas; K31.A0 Gastric intestinal metaplasia, unspecified; R94.5 Abnormal results of liver function studies; K59.04 Chronic idiopathic constipation; I10 Essential (primary) hypertension; G47.30 Sleep apnea, unspecified; E11.9 Type 2 diabetes mellitus without complications; K21.9 Gastro-esophageal reflux disease without esophagitis; I25.10 Atherosclerotic heart disease of native coronary artery without angina pectoris; Z79.899 Other long term (current) drug therapy; Z79.01 Long term (current) use of anticoagulants; Z98.890 Other specified postprocedural states; Z79.82 Long term (current) use of aspirin; Z95.5 Presence of coronary angioplasty implant and graft; Z86.73 Personal history of transient ischemic attack (TIA), and cerebral infarction without residual deficits; Z86.010 Personal history of colon polyps; Z87.891 Personal history of nicotine dependence
CPT/HCPCS: 43276; 82948; 74328; 43261; J3010; J0330; J7030 ×2; J2704; Q9967; A4620; C2625; C1769 ×2; A4215 ×2; A4223; A4657; A7002; A4222; A4221; A4663; A4606; C1773; 74330; J3490

== ENCOUNTER 2023-10-27 09:26 | Day surgery (SDC) | payer MEDICARE ==
[~2023-10-27] VITALS: Ht 165.1 cm; Wt 63.5 kg
[2023-10-27] VITALS (19 sets, daily range): BP systolic 142–190; BP diastolic 66–85; PULSE 54–71; RESP 10–18
[~2023-10-27 09:26] MED LIST changes: -0.9%NACL 1000ML 1,000 ML IV ONE; +CYAN-106 PO; -DAPA5TAB PO; +INDOMETHACIN 100 MG SUPP.RECT RC SCH; +METF-527 PO; -PIOG1TAB38 PO; +PIOG30TA70 PO; +PLEC3TAB2 PO
[2023-10-27] MEDS ORDERED: IOHEXOL-350 50ML VIAL IV ONE (09:57)
[2023-10-27] MEDS: 0.9%NACL 1000ML 1,000 ML IV ONE (10:12)
[2023-10-27] MEDS ORDERED: PROPOFOL 10 MG/ML 20ML VIAL IV ONE (12:48)
[2023-10-27] MEDS ORDERED: SUCCINYLCHOLINE CHLORIDE 20 MG/ML 10 ML VIAL ONE (12:49)
[2023-10-27] MEDS ORDERED: HYDRALAZINE 20MG/ML VIAL ONE (13:36)
== END 2023-10-27 15:45 | disposition home or self-care (01) ==
LOC: ENDO 09:26 → DAH 09:26 → ENDO 15:45
PROVIDERS: ATTEND Internal Medicine Gastroenterology
DX: Z46.59 Encounter for fitting and adjustment of other gastrointestinal appliance and device (principal); K83.8 Other specified diseases of biliary tract; K83.1 Obstruction of bile duct; C25.2 Malignant neoplasm of tail of pancreas; R94.5 Abnormal results of liver function studies; K59.04 Chronic idiopathic constipation; I10 Essential (primary) hypertension; I25.10 Atherosclerotic heart disease of native coronary artery without angina pectoris; G47.30 Sleep apnea, unspecified; K21.9 Gastro-esophageal reflux disease without esophagitis; E11.9 Type 2 diabetes mellitus without complications; Z79.899 Other long term (current) drug therapy; Z86.72 Personal history of thrombophlebitis; Z86.73 Personal history of transient ischemic attack (TIA), and cerebral infarction without residual deficits; Z86.010 Personal history of colon polyps; Z79.82 Long term (current) use of aspirin; Z98.890 Other specified postprocedural states; Z98.49 Cataract extraction status, unspecified eye; Z79.01 Long term (current) use of anticoagulants
CPT/HCPCS: 43275; 82948 ×2; 74328; J0330; J7030 ×2; J0360; J2704; Q9967; A4620; A4215 ×2; A4223; A7002; A4222; A4221; A4663; A4606; C1773; 74330; J3490

== ENCOUNTER → 2024-01-05 | Outpatient (CLI) | payer MEDICARE ==
[~2024-01-05] MED LIST changes: -INDOMETHACIN 100 MG SUPP.RECT RC SCH
== END | disposition home or self-care (01) ==
LOC: SHCH 10:24
PROVIDERS: ATTEND Internal Medicine Cardiovascular Disease
DX: T82.03XA Leakage of heart valve prosthesis, initial encounter (principal); I08.1 Rheumatic disorders of both mitral and tricuspid valves; Y92.89 Other specified places as the place of occurrence of the external cause; Z95.4 Presence of other heart-valve replacement
CPT/HCPCS: 93306

== ENCOUNTER → 2024-02-22 | Outpatient (CLI) | payer MEDICARE ==
[2024-02-22] MEDS: REGADENOSON 0.4 MG/5 ML PF SYG IVP ONE (15:49)
== END | disposition home or self-care (01) ==
LOC: SHCH 08:18
PROVIDERS: ATTEND Internal Medicine Cardiovascular Disease
DX: I25.10 Atherosclerotic heart disease of native coronary artery without angina pectoris (principal)
CPT/HCPCS: 78452; 96374; 93017; J2785; A9500 ×2

== ENCOUNTER 2024-05-01 12:12 | Emergency (ER) | payer MEDICARE ==
[~2024-05-01] VITALS: Ht 167.6 cm; Wt 63.5 kg
[~2024-05-01 12:12] MED LIST changes: -ROSU20TA73 PO; +ROSU20TA98 PO
[2024-05-01] MEDS: cloNIDine HCL 0.1 MG TABLET PO STA (14:33)
[2024-05-01 14:58] VITALS: BP 169/65; PULSE 70; RESP 16; TEMP 98.3; O2SAT 98
== END 2024-05-01 15:06 | disposition home or self-care (01) ==
LOC: EDH 12:12
DX: S09.8XXA Other specified injuries of head, initial encounter (principal); R42 Dizziness and giddiness; M25.522 Pain in left elbow; E11.36 Type 2 diabetes mellitus with diabetic cataract; G47.30 Sleep apnea, unspecified; I10 Essential (primary) hypertension; K21.9 Gastro-esophageal reflux disease without esophagitis; M19.90 Unspecified osteoarthritis, unspecified site; Z79.82 Long term (current) use of aspirin; Z79.84 Long term (current) use of oral hypoglycemic drugs; Z79.899 Other long term (current) drug therapy; Z86.73 Personal history of transient ischemic attack (TIA), and cerebral infarction without residual deficits; Z98.890 Other specified postprocedural states; W18.39XA Other fall on same level, initial encounter; Y93.89 Activity, other specified; Y92.89 Other specified places as the place of occurrence of the external cause; Y99.8 Other external cause status
CPT/HCPCS: 70450; 73080

== ENCOUNTER → 2024-09-14 | Outpatient (CLI) | payer MEDICARE ==
--- NOTE | 2024-09-18 13:25 | HMCSR ---
APPROVED REPORT Laterality: Bilateral Indications r09.89 Doppler Spectral Velocity Analysis PSV / EDVPSV / EDV ECA (R) 133 / cm/sECA (L) 124 / cm/s dICA (R) 100 / 22 cm/sdICA (L) 100 / 28 cm/s Kristie (R) 66 / 16 cm/smICA (L) 91 / 25 cm/s pICA (R) 74 / 14 cm/spICA (L) 64 / 13 cm/s dCCA (R) 70 / 10 cm/sdCCA (L) 94 / 18 cm/s mCCA (R) 67 / 12 cm/smCCA (L) pCCA (R) 84 / 13 cm/spCCA (L) 96 / 17 cm/s Vert (R) 57 / cm/sVert (L) 64 / cm/s Subl. (R) 150 / cm/sSubl. (L) 149 / cm/s ICA/CCA 1.19ICA/CCA 1.04 Technologist Impression Mild plaque noted in the bilateral carotids. OLINDA and LICA appear patent without hemodynamic significance. Bilateral vertebral arteries appear antegrade. Conclusion Mild plaque noted in the bilateral carotids. OLINDA and LICA appear patent without hemodynamic significance. Bilateral vertebral arteries appear antegrade. Conclusion Mild plaque noted in the bilateral carotids. OLINDA and LICA appear patent without hemodynamic significance. Bilateral vertebral arteries appear antegrade.
== END | disposition home or self-care (01) ==
LOC: SHCH 14:51
PROVIDERS: ATTEND Internal Medicine Cardiovascular Disease
DX: I65.23 Occlusion and stenosis of bilateral carotid arteries (principal); R09.89 Other specified symptoms and signs involving the circulatory and respiratory systems
CPT/HCPCS: 93880